=== PATIENT | female | born 1950 | race Caucasian/White ===

== ENCOUNTER 2017-11-19 09:08 | Outpatient (CLI) | payer MEDICARE, OTHER | END 2017-11-19 09:09 | disposition home or self-care (01) | LOC: BICMAMMO 09:08 | PROVIDERS: ATTEND Family Medicine | DX: Z13.820 Encounter for screening for osteoporosis (principal); E28.39 Other primary ovarian failure | CPT/HCPCS: 77080 ==

== ENCOUNTER 2017-12-18 19:30 | Outpatient (CLI) | payer MEDICARE, OTHER | END 2017-12-18 19:31 | disposition home or self-care (01) | LOC: SLEEPLAB 19:30 | PROVIDERS: ATTEND Family Medicine | DX: G47.33 Obstructive sleep apnea (adult) (pediatric) (principal); R53.83 Other fatigue; G31.84 Mild cognitive impairment of uncertain or unknown etiology; K21.9 Gastro-esophageal reflux disease without esophagitis; R35.1 Nocturia; I10 Essential (primary) hypertension | CPT/HCPCS: 95810 ==

== ENCOUNTER 2018-01-14 20:30 | Outpatient (CLI) | payer MEDICARE, OTHER | END 2018-01-14 20:31 | disposition home or self-care (01) | LOC: SLEEPLAB 20:30 | PROVIDERS: ATTEND Family Medicine | DX: G47.33 Obstructive sleep apnea (adult) (pediatric) (principal); R53.83 Other fatigue; G31.84 Mild cognitive impairment of uncertain or unknown etiology; K21.9 Gastro-esophageal reflux disease without esophagitis; R06.83 Snoring; R35.1 Nocturia; I10 Essential (primary) hypertension | CPT/HCPCS: 95811 ==

== ENCOUNTER 2018-04-17 09:37 | Outpatient (CLI) | payer MEDICARE, OTHER | END 2018-04-17 09:38 | disposition home or self-care (01) | LOC: BICMAMMO 09:37 | PROVIDERS: ATTEND Family Medicine | DX: Z12.31 Encounter for screening mammogram for malignant neoplasm of breast (principal) | CPT/HCPCS: 77063; 77067 ==

== ENCOUNTER 2019-02-03 16:11 | Emergency (ER) | payer MEDICARE, OTHER ==
--- NOTE | 2019-02-03 16:47 | RAD ---
Chest one view HISTORY: Altered mental status. Hypertension. COMPARISON: 03/28/2008. FINDINGS: Cardiac silhouette is magnified by projection. Pulmonary vasculature is unremarkable. Media stinum is midline. No lobar consolidation or evidence of pneumothorax. IMPRESSION: No active cardiopulmonary abnormalities are demonstrated.
[2019-02-03 16:52] LABS: #Basophils 0.1 thou/uL (0.0-0.2); #Eosinphils 0.2 thou/uL (0.0-0.7); #Monocytes 0.3 thou/uL (0.11-0.59); %Basophils 0.7 % (0.0-1.0); %Eosinophils 3.1 % (0.0-10.0); %Monocytes 3.8 % (0.0-10.0); %Neutrophils 66.3 % (42.0-75.0); Mean Corpuscular HGB CONC 33.3 g/dL (32.0-36.0); Mean Corpuscular Hemoglobin 28.7 pg (27.0-31.0); Mean Corpuscular Volume 86.3 fL (78.0-98.0); Mean Platelet Volume 6.5 fL (7.4-10.4); Platelet Count 200 thou/uL (130-400); RBC Distribution Width 11.6 % (11.5-14.5); Red Blood Cell (RBC) Count 5.24 mill/uL (4.20-5.40); White Blood Cell (WBC) Count 7.6 thou/uL (4.8-10.8)
--- NOTE | 2019-02-03 17:04 | CT ---
CT head noncontrast HISTORY: Headache. FINDINGS: There is no evidence of acute intracranial hemorrhage or infarct. Subtle area of curvilinea r increased density at the right basal ganglia is favored to represent physiologic calcification. The ventricles appear normal in size, shape and position. There is no mass effect or shift of midline structures. Visualized paranasal sinuses remain well-aerated. IMPRESSION: No acute intracranial abnormalities are demonstrated.
[2019-02-03 17:12] LABS: ALT (SGPT) 14 U/L (8-55); AST (SGOT) 12 U/L (5-34); Alkaline Phosphatase 72 U/L (40-150); Anion Gap 16 mmol/L (10-20); BUN (Urea Nitrogen) 14 mg/dL (9.8-20.1); Bilirubin, Total 0.4 mg/dL (0.2-1.2); CK (CPK) 31 U/L (29-168); Calc. Creatinine Clearance 0 mL/min (70-130); Calcium 9.6 mg/dL (7.8-10.44); Carbon Dioxide 23 mmol/L (23-31); Chloride 105 mmol/L (98-107); Estimated GFR-MDRD 56; Globulin 3.7 g/dL (2.4-3.5); Glucose 177 mg/dL (80-115); Potassium 3.5 mmol/L (3.5-5.1); Protein, Total 7.7 g/dL (6.0-8.3); Sodium 140 mmol/L (136-145)
== END 2019-02-03 17:58 | disposition home or self-care (01) ==
LOC: ERS 16:11
DX: I16.0 Hypertensive urgency (principal); E03.9 Hypothyroidism, unspecified; I10 Essential (primary) hypertension; Z79.899 Other long term (current) drug therapy
CPT/HCPCS: 70450; 71045; 80053; 82550; 83880; 84484; 85025; 93005; 96361; 96374

== ENCOUNTER 2019-04-18 09:53 | Outpatient (CLI) | payer MEDICARE, OTHER ==
--- NOTE | 2019-04-18 11:12 | MMO ---
Bilateral MAMMO Bilat Screen [id number]. CLINICAL HISTORY: Patient is 68 years old and is seen for screening. The patient has no family history of breast cancer. The patient has no personal history of cancer. VIEWS: The views performed were: bilateral craniocaudal with tomosynthesis and bilateral mediolateral oblique with tomosynthesis. FILMS COMPARED: The present examination has been compared to a prior imaging study performed at [facility] on 04/17/2018. MAMMOGRAM FINDINGS: The breasts are heterogeneously dense, which could obscure a lesion on mammography. There are stable benign appearing calcifications seen in both breasts. There are no suspicious masses, suspicious calcifications, or new areas of architectural distortion. IMPRESSION: THERE IS NO MAMMOGRAPHIC EVIDENCE OF MALIGNANCY. A ROUTINE FOLLOW-UP MAMMOGRAM IN 1 YEAR IS RECOMMENDED. THE RESULTS OF THIS EXAM WERE SENT TO THE PATIENT. ACR BI-RADS Category 2 - Benign finding MAMMOGRAPHY NOTE: 1. A negative mammogram report should not delay a biopsy if a dominant of clinically suspicious mass is present. 2. Approximately 10% to 15% of breast cancers are not detected by mammography. 3. Adenosis and dense breasts may obscure an underlying neoplasm. Reported by: CHANI DE OLIVEIRA MD Electonically Signed: [id number]
== END 2019-04-18 09:54 | disposition home or self-care (01) ==
LOC: BICMAMMO 09:53
PROVIDERS: ATTEND Family Medicine
DX: Z12.31 Encounter for screening mammogram for malignant neoplasm of breast (principal)
CPT/HCPCS: 77063; 77067

== ENCOUNTER 2021-05-11 10:26 | Outpatient (CLI) | payer MEDICARE, OTHER | END 2021-05-11 10:27 | disposition home or self-care (01) | LOC: BICMAMMO 10:26 | PROVIDERS: ATTEND Family Medicine | DX: Z12.31 Encounter for screening mammogram for malignant neoplasm of breast (principal) | CPT/HCPCS: 77063; 77067 ==

== ENCOUNTER 2021-06-12 09:49 | Emergency (ER) | payer MEDICARE, OTHER ==
[2021-06-12] MEDS ORDERED: Famotidine/PF 20 mg/2ml Vial ONE (10:48)
[2021-06-12] MEDS ORDERED: methylPREDNISolone Sod Succ/PF 125 MG/2 ML VIAL ONE (10:48)
[2021-06-12] MEDS ORDERED: diphenhydrAMINE 50 MG/ML VIAL ONE (10:48)
[2021-06-12] MEDS ORDERED: Ondansetron PF 4 MG/2 ML Vial ONE (10:48)
== END 2021-06-12 14:16 | disposition home or self-care (01) ==
LOC: ERS 09:49
DX: T78.40XA Allergy, unspecified, initial encounter (principal); E03.9 Hypothyroidism, unspecified; I10 Essential (primary) hypertension; Z79.899 Other long term (current) drug therapy
CPT/HCPCS: 96374; 96375; J1200; J2405; J2930; S0028

== ENCOUNTER 2022-07-06 13:51 | Outpatient (CLI) | payer MEDICARE, OTHER | END 2022-07-06 13:52 | disposition home or self-care (01) | LOC: SCSRAD 13:51 | PROVIDERS: ATTEND Family Medicine | DX: M25.562 Pain in left knee (principal); M17.12 Unilateral primary osteoarthritis, left knee ==

== ENCOUNTER 2022-07-13 07:51 | Outpatient (CLI) | payer MEDICARE, OTHER ==
[2022-07-13 10:54] LABS: #Basophils 0.1 thou/uL (0.0-0.2); #Eosinphils 0.4 thou/uL (0.0-0.7); #Lymphocytes 2.9 thou/uL (1.20-3.40); #Monocytes 0.5 thou/uL (0.11-0.59); #Neutrophils 3.7 thou/uL (1.40-6.50); %Basophils 0.8 % (0.0-1.0); %Eosinophils 5.6 % (0.0-10.0); %Lymphocytes 38.5 % (21.0-51.0); %Monocytes 6.5 % (0.0-10.0); %Neutrophils 48.5 % (42.0-75.0); Hemoglobin 14.2 g/dL (12.0-16.0); Mean Corpuscular HGB CONC 32.5 g/dL (32.0-36.0); Mean Corpuscular Volume 89.2 fL (78.0-98.0); Platelet Count 204 thou/uL (130-400); RBC Distribution Width 11.9 % (11.5-14.5); Red Blood Cell (RBC) Count 4.91 mill/uL (4.20-5.40); White Blood Cell (WBC) Count 7.6 thou/uL (4.8-10.8)
[2022-07-13 12:20] LABS: CRP (Inflammatory) Less than 0.50 mg/dL (= or < 0.5); Uric Acid 6.9 mg/dL (2.6-6.0)
== END 2022-07-13 07:52 | disposition home or self-care (01) ==
LOC: SCSMRI 07:51
PROVIDERS: ATTEND Family Medicine
DX: M25.562 Pain in left knee (principal); M70.30 Other bursitis of elbow, unspecified elbow; M23.222 Derangement of posterior horn of medial meniscus due to old tear or injury, left knee; M25.462 Effusion, left knee; M23.232 Derangement of other medial meniscus due to old tear or injury, left knee
CPT/HCPCS: 36415; 84550; 85025; 86140

== ENCOUNTER 2022-11-27 11:21 | Outpatient (CLI) | payer MEDICARE, OTHER ==
[2022-11-27 13:03] LABS: #Basophils 0.1 10x3/uL (0.0-0.2); #Eosinphils 0.3 10x3/uL (0.0-0.5); #Monocytes 0.5 10x3/uL (0.0-1.1); %Basophils 1.7 % (0.0-2.0); %Eosinophils 3.6 % (0.0-6.0); %Lymphocytes 33.4 % (18.0-47.0); %Monocytes 6.6 % (0.0-10.0); %Neutrophils 54.4 % (40.0-75.0); Hemoglobin 13.5 g/dL (12.0-15.5); Mean Corpuscular Hemoglobin 28.3 pg (27.0-33.0); Mean Corpuscular Volume 85.7 fl (81.6-98.3); Mean Platelet Volume 9.1 fl (7.4-10.4); Platelet Count 227 10x3/uL (150-450); Red Blood Cell (RBC) Count 4.77 10x6/uL (3.90-5.03); White Blood Cell (WBC) Count 7.4 10x3/uL (3.5-10.5)
[2022-11-27 13:35] LABS: Anion Gap 17 mmol/L (10-20); BUN (Urea Nitrogen) 12 mg/dL (9.8-20.1); Calc. Creatinine Clearance 0 mL/min (70-130); Calcium 9.6 mg/dL (7.8-10.44); Carbon Dioxide 21 mmol/L (23-31); Chloride 107 mmol/L (98-107); Estimated GFR 65; Glucose 102 mg/dL (83-110); Potassium 3.8 mmol/L (3.5-5.1); Sodium 141 mmol/L (136-145)
== END 2022-11-27 11:22 | disposition home or self-care (01) ==
LOC: LABBT 11:21
DX: Z01.818 Encounter for other preprocedural examination (principal); S83.242A Other tear of medial meniscus, current injury, left knee, initial encounter
CPT/HCPCS: 80048; 85025; 93005; 93010

== ENCOUNTER 2022-11-30 05:53 | Day surgery (SDC) | payer MEDICARE, OTHER ==
[2022-11-28 12:24] VITALS: BMI 29.8
[2022-11-30] MEDS ORDERED: fentaNYL PF 100 MCG/2 ML SYRINGE ONE (06:28)
[2022-11-30] MEDS ORDERED: Bupivacaine PF 0.5% 30 ML VIAL ONE (06:46)
[2022-11-30] MEDS ORDERED: Lidocaine 2% PF 5 ML VIAL ONE (06:46)
[2022-11-30] MEDS ORDERED: PROPOFOL 20 ML ONE (06:48)
[2022-11-30] MEDS ORDERED: CEFAZOLIN 2 GM VIAL ONE (07:17)
[2022-11-30] MEDS ORDERED: Sodium Chloride 0.9% 100 ML ONE (07:17)
[2022-11-30] MEDS ORDERED: Bupivacaine HCl 0.5%/Epinephrine 1:200,000/PF 30 ml Vial ONE (07:29)
[2022-11-30] MEDS ORDERED: PROPOFOL 200 MG/20 ML VIAL ONE (07:29)
[2022-11-30] MEDS ORDERED: Dexamethasone 20 MG/5 ML VIAL ONE (07:29)
[2022-11-30] MEDS ORDERED: Ondansetron PF 4 MG/2 ML Vial ONE (07:29)
[2022-11-30] MEDS ORDERED: Lidocaine 1% PF 5 ML VIAL ONE (07:29)
== END 2022-11-30 10:14 | disposition home or self-care (01) ==
LOC: SDC 05:53
PROVIDERS: ATTEND Orthopaedic Surgery
PROC: 0SBD4ZZ Excision of Left Knee Joint, Percutaneous Endoscopic Approach (ICD-10-PCS; principal; 2022-11-30)
PROC: 0SBD4ZZ Excision of Left Knee Joint, Percutaneous Endoscopic Approach (ICD-10-PCS; 2022-11-30)
DX: S83.232A Complex tear of medial meniscus, current injury, left knee, initial encounter (principal); S83.282A Other tear of lateral meniscus, current injury, left knee, initial encounter; M94.262 Chondromalacia, left knee; I10 Essential (primary) hypertension; E89.0 Postprocedural hypothyroidism; Z87.891 Personal history of nicotine dependence; Z79.890 Hormone replacement therapy; Z79.899 Other long term (current) drug therapy; Z88.5 Allergy status to narcotic agent; Z88.8 Allergy status to other drugs, medicaments and biological substances; X58.XXXA Exposure to other specified factors, initial encounter
CPT/HCPCS: J1100; J2001; J2405; J2704; J3490; S0020

== ENCOUNTER 2023-10-12 21:58 | Emergency (ER) | payer MEDICARE, OTHER ==
[2023-10-12] MEDS ORDERED: Sodium Chloride 0.9% 100 ML ONE (23:23)
[2023-10-12] MEDS ORDERED: Cefepime 1 GM VIAL ONE (23:23)
[2023-10-12] MEDS ORDERED: predniSONE 20 MG TAB ONE (23:23)
[2023-10-12] MEDS ORDERED: valACYclovir 500 MG TAB ONE (23:23)
[2023-10-12] MEDS ORDERED: Morphine 4 MG/ML VIAL ONE (23:23)
[2023-10-12] MEDS ORDERED: Ketorolac Tromethamine 30 MG (1 mL) VIAL ONE (23:23)
[2023-10-12] MEDS ORDERED: Vancomycin 1 GM/200 ML (FROZEN) BAG ONE (23:24)
[2023-10-12] MEDS ORDERED: Ondansetron PF 4 MG/2 ML Vial ONE (23:41)
[2023-10-12 23:52] LABS: Hematocrit 43.5 % (36.0-47.0); Hemoglobin 14.3 g/dL (12.0-16.0); Manual Diff?? YES; Mean Corpuscular HGB CONC 32.9 g/dL (32.0-36.0); Mean Corpuscular Hemoglobin 28.7 pg (27.0-31.0); Mean Corpuscular Volume 87.2 fl (78.0-98.0); Mean Platelet Volume 9.2 fL (7.4-10.4); Platelet Count 93 10x3/uL (130-400); RBC Distribution Width 13.1 % (11.5-14.5); Red Blood Cell (RBC) Count 4.99 mill/uL (4.20-5.40); White Blood Cell (WBC) Count 5.5 10x3/uL (4.8-10.8)
[2023-10-12 23:53] LABS: Delete Auto Diff?? YES
[2023-10-13 00:20] LABS: Band 9 % (5-11); CellaVision Operator ID lab.abc; Eosinophils 1 % (0-10); Lymphocytes 10 % (21-51); Monocytes 8 % (0-10); Neutrophil 64 % (42-75); Platelet Adequacy Comment Platelets Decreased; RBC Morphology Within Normal Limits; Reactive Lymphocytes 6 % (0-10); Smudge Cells 13.1 %; Total Cell Count 99
[2023-10-13] MEDS ORDERED: Cefepime 2 GM VIAL ONE (00:35)
[2023-10-13 00:52] LABS: ALT (SGPT) 21 U/L (8-55); AST (SGOT) 20 U/L (5-34); Albumin 3.4 g/dL (3.4-4.8); Alkaline Phosphatase 83 U/L (40-110); Anion Gap 17 mmol/L (10-20); BUN (Urea Nitrogen) 13 mg/dL (9.8-20.1); Bilirubin, Total 0.4 mg/dL (0.2-1.2); Calc. Creatinine Clearance 0 mL/min (70-130); Calcium 8.4 mg/dL (7.8-10.44); Carbon Dioxide 22 mmol/L (23-31); Chloride 101 mmol/L (98-107); Estimated GFR 57; Globulin 3.5 g/dL (2.4-3.5); Glucose 136 mg/dL (83-110); Potassium 3.5 mmol/L (3.5-5.1); Protein, Total 6.9 g/dL (5.8-8.1); Sodium 136 mmol/L (136-145)
[2023-10-13 02:57] LABS: Lactic Acid 0.9 mmol/L (0.5-2.2)
[2023-10-13 03:12] LABS: SARS-CoV-2 NAA Rapid Test Not Detected (NotDetected)
[2023-10-13] MEDS ORDERED: Morphine 4 MG/ML VIAL ONE (04:09)
== END 2023-10-13 04:44 | disposition short-term general hospital (02) ==
LOC: ERS 21:58
DX: B02.30 Zoster ocular disease, unspecified (principal); L03.811 Cellulitis of head [any part, except face]; L03.211 Cellulitis of face; E03.9 Hypothyroidism, unspecified; I10 Essential (primary) hypertension; Z79.899 Other long term (current) drug therapy
CPT/HCPCS: 80053; 83605; 85025; 87040; 96361; 96365; 96366; 96367; 96375; 96376; 99284; J3370; U0002; 36415; J0692; J1885; J2270; J2405; J3490; J7512